=== PATIENT | female | born 1955 | race African-American/Black ===

== ENCOUNTER 2023-01-30 09:43 | Outpatient (CLI) | payer MEDICARE | END 2023-01-30 09:44 | disposition home or self-care (01) | LOC: CSHMAMMO 09:43 | PROVIDERS: ATTEND Nurse Practitioner Adult Health | DX: Z12.31 Encounter for screening mammogram for malignant neoplasm of breast (principal); Z85.3 Personal history of malignant neoplasm of breast; Z91.89 Other specified personal risk factors, not elsewhere classified | CPT/HCPCS: 77063; 77067 ==

== ENCOUNTER 2025-02-17 06:03 | Day surgery (SDC) | payer MEDICARE ==
[2025-02-16 16:08] VITALS: BMI 36.6
[2025-02-17 07:27] LABS: #Basophils 0.04 10x3/uL (0.0-0.2); #Eosinophils 0.13 10x3/uL (0.0-0.5); #Monocytes 0.59 10x3/uL (0.0-1.1); #Neutrophils 5.67 10x3/uL (1.5-8.4); %Basophils 0.5 % (0.0-2.0); %Eosinophils 1.5 % (0.0-6.0); %Lymphocytes 26.3 % (18.0-47.0); %Monocytes 6.7 % (0.0-10.0); %Neutrophils 64.5 % (40.0-75.0); Hematocrit 38.1 % (34.9-44.5); Hemoglobin 12.8 g/dL (12.0-15.5); Mean Corpuscular Hemoglobin 30.2 pg (27.0-33.0); Mean Corpuscular Volume 89.9 fL (81.6-98.3); Platelet Count 221 10x3/uL (150-450); Red Blood Cell (RBC) Count 4.24 10x6/uL (3.90-5.03); White Blood Cell (WBC) Count 8.78 10x3/uL (3.5-10.5)
[2025-02-17 07:38] LABS: Anion Gap 18 mmol/L (10-20); BUN (Urea Nitrogen) 20 mg/dL (9.8-20.1); Calc. Creatinine Clearance 78 mL/min (70-130); Calcium 9.9 mg/dL (7.8-10.44); Carbon Dioxide 23 mmol/L (23-31); Chloride 106 mmol/L (98-107); Glucose 102 mg/dL (80-115); Potassium 3.9 mmol/L (3.5-5.1); Sodium 143 mmol/L (136-145)
[2025-02-17] MEDS ORDERED: Ketorolac Tromethamine 30 MG (1 mL) VIAL ONE (07:40)
[2025-02-17] MEDS ORDERED: Acetaminophen 500 MG TAB ONE (07:40)
[2025-02-17] MEDS ORDERED: Lidocaine 1% PF 5 ML VIAL ONE (08:41)
[2025-02-17] MEDS ORDERED: Ondansetron PF 4 MG/2 ML Vial ONE (08:41)
[2025-02-17] MEDS ORDERED: PROPOFOL 20 ML ONE (08:41)
[2025-02-17] MEDS ORDERED: CEFAZOLIN 2 GM VIAL ONE (08:43)
[2025-02-17] MEDS ORDERED: Bupivacaine/Epinephrine 0.25% 30 ML VIAL ONE (09:15)
[2025-02-17] MEDS ORDERED: HYDROcodone/Acetaminophen 5/325 mg Tablet ONE (13:00)
== END 2025-02-17 13:50 | disposition home or self-care (01) ==
LOC: CSHSDC 06:03
PROVIDERS: ATTEND Specialist
PROC: 0HBT0ZZ Excision of Right Breast, Open Approach (ICD-10-PCS; principal; 2025-02-17)
DX: N61.0 Mastitis without abscess (principal); N60.31 Fibrosclerosis of right breast; R92.1 Mammographic calcification found on diagnostic imaging of breast; I10 Essential (primary) hypertension; E78.5 Hyperlipidemia, unspecified; Z79.899 Other long term (current) drug therapy
CPT/HCPCS: 14301; 19303; 80048; 85025; 93005; A6258; J1100; J1885; J2405; J2704; J3010; 36415; 88307; 88342; 93010

== ENCOUNTER 2025-05-30 13:43 | Observation (INO) | payer MEDICARE ==
[2025-05-30 14:37] LABS: #Basophils 0.05 10x3/uL (0.0-0.2); #Eosinophils 0.09 10x3/uL (0.0-0.5); #Monocytes 0.48 10x3/uL (0.0-1.1); #Neutrophils 5.38 10x3/uL (1.5-8.4); %Basophils 0.6 % (0.0-2.0); %Eosinophils 1.1 % (0.0-6.0); %Lymphocytes 29.0 % (18.0-47.0); %Monocytes 5.6 % (0.0-10.0); %Neutrophils 63.2 % (40.0-75.0); Hematocrit 36.9 % (34.9-44.5); Hemoglobin 11.9 g/dL (12.0-15.5); Mean Corpuscular Hemoglobin 28.5 pg (27.0-33.0); Mean Corpuscular Volume 88.5 fL (81.6-98.3); Platelet Count 210 10x3/uL (150-450); Red Blood Cell (RBC) Count 4.17 10x6/uL (3.90-5.03); White Blood Cell (WBC) Count 8.51 10x3/uL (3.5-10.5)
[2025-05-30 14:49] LABS: Glucose, Urine (Dipstick) Normal (Negative); Leukocyte Negative (Negative); Protein, Urine (Dipstick) Negative (Neg-Trace); Specific Gravity, Urine 1.010 (1.005-1.030)
[2025-05-30 14:53] LABS: ALT (SGPT) 14 U/L (Less than 34); AST (SGOT) 24 U/L (11-34); Albumin 3.8 g/dL (3.1-4.5); Alkaline Phosphatase 147 U/L (40-110); Anion Gap 13 mmol/L (10-20); BUN (Urea Nitrogen) 12 mg/dL (9.8-20.1); Bilirubin, Total 0.2 mg/dL (0.3-1.2); Calc. Creatinine Clearance 0 mL/min (70-130); Calcium 9.8 mg/dL (7.8-10.44); Carbon Dioxide 27 mmol/L (23-31); Chloride 107 mmol/L (98-107); Globulin 4.0 g/dL (2.4-3.5); Glucose 100 mg/dL (80-115); Potassium 3.7 mmol/L (3.5-5.1); Sodium 143 mmol/L (136-145)
[2025-05-30 14:59] LABS: Troponin I Less than 0.010 ng/mL (< 0.028)
[2025-05-30 15:01] LABS: CAUTI Indications for Culture Pelvic or flank pain; RBC/HPF 0-3 HPF (0-3); WBC/HPF 0-3 HPF (0-3)
[2025-05-30 15:02] LABS: Bacteria/HPF Rare-Few HPF (None Seen); Urine Culture Reflex No No
[2025-05-30] MEDS ORDERED: cloNIDine 0.1 MG TAB ONE (17:57)
[2025-05-30] MEDS ORDERED: Melatonin 3 MG TAB PO PRN (19:30)
[2025-05-30] MEDS ORDERED: Acetaminophen 325 MG TAB PO PRN (19:30)
[2025-05-30] MEDS ORDERED: Calcium Carbonate 500 MG ChewTAB PO PRN (19:30)
[2025-05-30] MEDS ORDERED: Senokot S 8.6-50 MG TAB PO PRN (19:30)
[2025-05-30] MEDS ORDERED: Ondansetron PF 4 MG/2 ML Vial IVP PRN (19:30)
[2025-05-30] MEDS ORDERED: hydrALAZINE 20 MG/ML VIAL SLOW IVP PRN (19:32)
[2025-05-30] MEDS: Phenytoin Extended Release 100 MG CAP PO SCH (21:04)
[2025-05-30] MEDS: NIFEdipine 10 MG CAP PO SCH (21:05)
[2025-05-30 21:24] VITALS: BMI 36.0
[2025-05-31 05:52] LABS: Anion Gap 13 mmol/L (10-20); BUN (Urea Nitrogen) 15 mg/dL (9.8-20.1); Calc. Creatinine Clearance 82 mL/min (70-130); Calcium 9.7 mg/dL (7.8-10.44); Carbon Dioxide 27 mmol/L (23-31); Chloride 105 mmol/L (98-107); Glucose 102 mg/dL (80-115); Magnesium 2.0 mg/dL (1.6-2.6); Potassium 4.4 mmol/L (3.5-5.1); Sodium 141 mmol/L (136-145)
[2025-05-31 06:00] LABS: Troponin I Less than 0.010 ng/mL (< 0.028)
[2025-05-31] MEDS: Aspirin 81 mg Enteric Coated Tablet PO SCH (09:39)
[2025-05-31] MEDS: Losartan 50 MG TAB PO SCH (09:40)
[2025-05-31] MEDS: Pantoprazole 40 MG DR.TAB PO SCH (09:40)
[2025-05-31] MEDS: Enoxaparin 40 MG (0.4 mL) SYRINGE SC SCH (09:41)
[2025-05-31 12:49] VITALS: BP 180/77; TEMP 99.2
== END 2025-05-31 14:22 | disposition home or self-care (01) ==
LOC: CSHERS 13:43 → CSHTELE 19:30
PROVIDERS: ADMIT Student in an Organized Health Care Education/Training Program; ATTEND Student in an Organized Health Care Education/Training Program
DX: I10 Essential (primary) hypertension (principal); E78.5 Hyperlipidemia, unspecified; G40.909 Epilepsy, unspecified, not intractable, without status epilepticus; K21.9 Gastro-esophageal reflux disease without esophagitis; Z79.899 Other long term (current) drug therapy
CPT/HCPCS: 80048; 80053; 81001; 83605; 83735; 83880; 84443; 84484 ×2; 85025; 93005; 96374; 96376; 99284; J1650; 36415; 96372; G0378; J2704; J3010